=== PATIENT | female | born 1980 | race Caucasian/White ===

== ENCOUNTER 2022-11-03 11:27 | Outpatient (CLI) | payer BC, SELFPAY ==
[2022-11-03 22:46] LABS: C Reactive Protein* < 0.5 mg/dL (0.5-1.0)
[2022-11-03 22:53] LABS: Vitamin D 25 Hydroxy* 48 ng/mL (30-80)
[2022-11-06 02:17] LABS: Rheumatoid Factor <10 IU/mL (0-14)
[2022-11-06 07:55] LABS: Anti-Nuclear Ab(ANA)IgG ELISA None Detected (None Detected)
== END 2022-11-03 11:28 | disposition home or self-care (01) ==
PROVIDERS: PCP Physician Assistant Medical; Visit Provider Physician Assistant Medical
DX: M25.50 Pain in unspecified joint (principal)
CPT/HCPCS: 82306; 83516; 84443; 86039; 86140; 86431

== ENCOUNTER 2022-12-29 12:04 | Outpatient (CLI) | payer BC, SELFPAY ==
--- NOTE | 2022-12-29 12:15 | CRLHL7_ITS ---
For Patients: As a result of the Century Cures Act, medical imaging exams and procedure reports are released immediately into your electronic medical record. You may view this report before your referring provider. If you have questions, please contact your health care provider. CLINICAL HISTORY: Follow up MRI TECHNIQUE: 2D mitchell scale and color Doppler images were acquired of the pelvis using a transvaginal approach. Comparison Pelvic ultrasound 02/24/2022 FINDINGS: On transvaginal imaging, the myometrium has a heterogeneous echotexture. The uterus measures 12.4 x 5.7 x 7.5 cm. There is a intramural leiomyoma within the right lower uterine segment measuring 2.9 x 2.6 x 2.9 cm, previously measuring 2.1 x 1.9 x 2.0 cm. The endometrial lining appears normal and measures 5 mm in thickness. Cervical nabothian cyst noted. The left ovary measures 3.2 x 1.0 x 1.1 cm in size and the right ovary measures 4.0 x 2.7 x 2.3 cm. The ovaries demonstrate normal arterial and venous blood flow on color Doppler analysis. A heterogeneously hypoechoic right ovarian cyst is now present measuring 2.1 x 1.7 x 2.0 cm. There is a mild amount of pelvic free fluid. IMPRESSION: Complex right ovarian cyst measuring 2.1 cm, likely representing a hemorrhagic cyst. Follow-up in 8-12 weeks suggested. Increased size of intramural right-sided lower uterine segment fibroid measuring 2.9 cm, previously measuring 2.1 cm. 2.2 cm cervical nabothian cyst. Dictated by Jacoby Mar MD @ 12/30/2022 6:36:25 AM (Electronically Signed)
== END 2022-12-29 12:05 | disposition home or self-care (01) ==
LOC: US 12:04
PROVIDERS: PCP Physician Assistant Medical; Visit Provider Physician Assistant
DX: R10.2 Pelvic and perineal pain (principal); N83.201 Unspecified ovarian cyst, right side; D25.1 Intramural leiomyoma of uterus; N88.8 Other specified noninflammatory disorders of cervix uteri
CPT/HCPCS: 76830; 76856

== ENCOUNTER 2023-02-25 10:30 | Outpatient (RCR) | payer BC, SELFPAY ==
--- NOTE | 2022-11-26 12:49 | PT.OPE ---
PT [facility] Outpatient Eval PT [facility] Outpatient Eval Start: 11/26/22 09:54 Freq: Status: Active Protocol: Document 11/26/22 09:54 LSL (Rec: 11/26/22 10:33 LSL [id number]) E-signed By Tori Sanchez PT Physical Therapy Outpatient Evaluation Insurance Information Recert Due Date 02/20/23 Insurance Name Medicaid,Blue Cross/Blue Shield Medical Diagnosis pain in multiple joints Treating Diagnosis pain, impaired ROM Referring MD Mcgovern Subjective Subjective Pt. reports she was on a horse in April and her horse jerked her forward and to the left and she had pain in her L LB and hip. She had to drive 7 hours the next day. Goes to chiropractor intermittently. She is talking about ordering an MRI. Pain is constant ache in her R lateral hip and trunk and becomes intermittently sharp. I very rarely sit. 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 IBANEZ test was negative, I have always had a raspy voice, but worse with COVID last February. Has been unable to find anything that makes her hip feel better. Theragun just makes me want to cry. Going to a safety trainer last fall and made things hurt a lot. Chiropractic provides some temporary relief.My goal is to try and find some exercises and stretches that actually can help manage or eliminate my pain. Additionally have pain deep in the hip with intercourse. 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 Precautions Weight Bearing Status Full Weight Bearing Therapy Limitations/Systems Review Not Limited Objective Range of Motion AROM - lumbar flexion 80%, LLF 75% with pain, RLF WNL, extension WNL, Hip - WNL Strength Trunk - extension 5/5, TA 2/5 LE - 5/5 with pain on moving hip forward and backward to achieve hip and test but without pain or weakness on test, adductors 4/5 with pain Swelling anterior hip Palpation tender R hip flexors and RF, TFL, R diaphragm tender Balance & Gait B good SL balance E/O firm surface with ankle instability R, loss of balance on L with E/C within a couple seconds, not assessed E/C on R due to ankle instability Assessment Assessment/Impression Pt. is a 42 y/o female who presents with chronic R hip and lateral trunk pain after a horse riding incident in which her R lateral trunk and hip were required to eccentrically control her movement unexpectedly. She has visible and palpable swelling in the anterior R hip and is overall strong with some weakness in her R hip adductors. She will benefit from treatment to decrease pain and tension in this area and improve her endurance. PT will consist of pt. education, therex, manual therapy, NM re -ed and modalities for pain relief. Further evaluation of her hip joint will be necessary as pain allows. Primary Functional Limitations walking, sitting, standing, Plan of Care Rehabilitation Potential Good Physical Therapy Goals SHORT TERM GOALS: (3 weeks) 1. Pt. to have decreased swelling in R anterior hip. 2. Pt. compliant with hip stretches daily. 3. Pt. able to carry laundry basket at end of work day with pain less than 4/10. 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 Pt. able to work for 4 hours with pain less than 4/10 . 2. Pt. able to transition positions involving rotation with pain less than 2/10. 3. Pt. able to walk for an hour with pain less than 2/10. Coordination/Communication With Referral Source Treatment Plan/Direct Interventions Joint Mobilization,Manual Therapy,Neuromuscular Re-ed, Self-Care/Home Management, Therapeutic Exercises Frequency/Duration 1-2x/week 6 weeks Patient Will Be Discharged From Therapy Completion of LTG(s),Skills Plateau,Independent w/HEP, Independently Progressing Evaluation Billing Untimed Code Treatment Minutes 45 Complexity High Certification Information Initial Certification Date 11/26/22 Ending Certification Date 02/20/23 Provider Signature Shows Agreement With POC & Medical Necessity Physician Signature & Date Requested Please Sign/Date Here Physician Comment/Change : Physician NPI Number #
--- NOTE | 2022-11-27 16:40 | PT.OPE ---
PT [facility] Outpatient Eval PT [facility] Outpatient Eval Start: 11/26/22 09:54 Freq: Status: Active Protocol: Document 11/26/22 09:54 LSL (Rec: 11/26/22 10:33 LSL [id number]) E-signed By Tori Sanchez PT Physical Therapy Outpatient Evaluation Insurance Information Recert Due Date 02/20/23 Insurance Name Medicaid,Blue Cross/Blue Shield Medical Diagnosis pain in multiple joints Treating Diagnosis pain, impaired ROM Referring MD Mcgovern Subjective Subjective Pt. reports she was on a horse in April and her horse jerked her forward and to the left and she had pain in her L LB and hip. She had to drive 7 hours the next day. Goes to chiropractor intermittently. She is talking about ordering an MRI. Pain is constant ache in her R lateral hip and trunk and becomes intermittently sharp. I very rarely sit. 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 IBANEZ test was negative, I have always had a raspy voice, but worse with COVID last February. Has been unable to find anything that makes her hip feel better. Theragun just makes me want to cry. Going to a development trainer last fall and made things hurt a lot. Chiropractic provides some temporary relief.My goal is to try and find some exercises and stretches that actually can help manage or eliminate my pain. Additionally have pain deep in the hip with intercourse. 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 Precautions Weight Bearing Status Full Weight Bearing Therapy Limitations/Systems Review Not Limited Objective Range of Motion AROM - lumbar flexion 80%, LLF 75% with pain, RLF WNL, extension WNL, Hip - WNL Strength Trunk - extension 5/5, TA 2/5 LE - 5/5 with pain on moving hip forward and backward to achieve hip and test but without pain or weakness on test, adductors 4/5 with pain Swelling anterior hip Palpation tender R hip flexors and RF, TFL, R diaphragm tender Balance & Gait B good SL balance E/O firm surface with ankle instability R, loss of balance on L with E/C within a couple seconds, not assessed E/C on R due to ankle instability Assessment Assessment/Impression Pt. is a 42 y/o female who presents with chronic R hip and lateral trunk pain after a horse riding incident in which her R lateral trunk and hip were required to eccentrically control her movement unexpectedly. She has visible and palpable swelling in the anterior R hip and is overall strong with some weakness in her R hip adductors. She will benefit from treatment to decrease pain and tension in this area and improve her endurance. PT will consist of pt. education, therex, manual therapy, NM re -ed and modalities for pain relief. Further evaluation of her hip joint will be necessary as pain allows. Primary Functional Limitations walking, sitting, standing, Plan of Care Rehabilitation Potential Good Physical Therapy Goals SHORT TERM GOALS: (3 weeks) 1. Pt. to have decreased swelling in R anterior hip. 2. Pt. compliant with hip stretches daily. 3. Pt. able to carry laundry basket at end of work day with pain less than 4/10. 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 Pt. able to work for 4 hours with pain less than 4/10 . 2. Pt. able to transition positions involving rotation with pain less than 2/10. 3. Pt. able to walk for an hour with pain less than 2/10. Coordination/Communication With Referral Source Treatment Plan/Direct Interventions Joint Mobilization,Manual Therapy,Neuromuscular Re-ed, Self-Care/Home Management, Therapeutic Exercises Frequency/Duration 1-2x/week 6 weeks Patient Will Be Discharged From Therapy Completion of LTG(s),Skills Plateau,Independent w/HEP, Independently Progressing Evaluation Billing Untimed Code Treatment Minutes 45 Complexity High Certification Information Initial Certification Date 11/26/22 Ending Certification Date 02/20/23 Provider Signature Shows Agreement With POC & Medical Necessity Physician Signature & Date Requested Please Sign/Date Here Physician Comment/Change : Physician NPI Number #
== END 2023-06-25 23:59 | disposition home or self-care (01) ==
PROVIDERS: PCP Physician Assistant Medical; Visit Provider Physician Assistant Medical
DX: M25.50 Pain in unspecified joint (principal); Z51.89 Encounter for other specified aftercare
CPT/HCPCS: 97032; 97110; 97140; 97163

== ENCOUNTER 2023-04-20 15:51 | Outpatient (CLI) | payer BC, SELFPAY ==
--- NOTE | 2023-04-20 16:00 | CRLHL7_ITS ---
For Patients: As a result of the Century Cures Act, medical imaging exams and procedure reports are released immediately into your electronic medical record. You may view this report before your referring provider. If you have questions, please contact your health care provider. CLINICAL HISTORY: f/u right ovarian complex cyst Comparison 12/29/2022 TECHNIQUE: 2D mitchell scale and color Doppler images were acquired of the pelvis using a transvaginal approach. FINDINGS: Right-sided uterine fibroid is similar measuring 3.9 x 2.5 x 2.9 cm. The endometrial lining appears normal and measures 6 mm in thickness. The left ovary measures 3.5 x 1.7 x 2.0 cm in size and the right ovary measures 3.1 x 2.1 x 2.7 cm. The ovaries demonstrate normal arterial and venous blood flow on color Doppler analysis. Moderate pelvic free fluid. Near complete resolution of previously noted right ovarian hemorrhagic cyst. IMPRESSION: Interval near complete resolution of the right ovarian hemorrhagic cyst. Moderate pelvic free fluid is present with a volume of 15.1 cc. Stable right-sided uterine fibroid measuring 3.9 cm. Dictated by Jacoby Mar MD @ 04/21/2023 4:48:23 PM (Electronically Signed)
== END 2023-04-20 15:52 | disposition home or self-care (01) ==
LOC: US 15:52
PROVIDERS: PCP Physician Assistant Medical; Visit Provider Physician Assistant
DX: N83.201 Unspecified ovarian cyst, right side (principal); D25.9 Leiomyoma of uterus, unspecified
CPT/HCPCS: 76830

== ENCOUNTER 2023-11-25 08:23 | Outpatient (CLI) | payer BC, SELFPAY | END 2023-11-25 08:24 | disposition home or self-care (01) | PROVIDERS: PCP Physician Assistant Medical; Visit Provider Emergency Medicine | DX: M79.10 Myalgia, unspecified site (principal) | CPT/HCPCS: 82550; 86140 ==

== ENCOUNTER 2023-12-07 09:37 | Outpatient (CLI) | payer BC, SELFPAY ==
--- NOTE | 2023-12-07 11:09 | W.ANESCHARGE ---
Anesthesia Charges Start Date/Time Anesthesia Start Date: 12/07/23 Anesthesia Start Time: 10:44 Stop Date/Time Anesthesia Stop Date: 12/07/23 Anesthesia Stop Time: 11:00
--- NOTE | 2023-12-07 11:30 | W.ANESCHARGE ---
Anesthesia Charges Start Date/Time Anesthesia Start Date: 12/07/23 Anesthesia Start Time: 10:44 Stop Date/Time Anesthesia Stop Date: 12/07/23 Anesthesia Stop Time: 11:00
== END 2023-12-07 09:38 | disposition home or self-care (01) ==
LOC: OP CLINIC 09:38
PROVIDERS: PCP Physician Assistant Medical; Visit Provider Internal Medicine
DX: R10.84 Generalized abdominal pain (principal)
CPT/HCPCS: 00812; 45378; J2704

== ENCOUNTER 2025-01-26 08:34 | Outpatient (CLI) | payer OTHER, SELFPAY ==
[2025-01-26 15:19] LABS: Chlamydia DNA Amplified* NOT DETECTED (No Detected); GC DNA Amplified* NOT DETECTED (No Detected)
[2025-01-28 00:51] LABS: HPV Source Cervix; HPV, High Risk by TMA Not Detected
== END 2025-01-26 08:35 | disposition home or self-care (01) ==
PROVIDERS: PCP Physician Assistant Medical; Visit Provider Physician Assistant Medical
DX: Z13.228 Encounter for screening for other metabolic disorders (principal); Z13.6 Encounter for screening for cardiovascular disorders; Z13.29 Encounter for screening for other suspected endocrine disorder; Z11.4 Encounter for screening for human immunodeficiency virus [HIV]; Z11.59 Encounter for screening for other viral diseases; Z11.3 Encounter for screening for infections with a predominantly sexual mode of transmission; Z11.51 Encounter for screening for human papillomavirus (HPV); Z12.4 Encounter for screening for malignant neoplasm of cervix
CPT/HCPCS: 80048; 80061; 84443; 86703; 86803; 87491; 87591; 87624; 87625; 88141; 88142

== ENCOUNTER 2025-02-09 10:42 | Outpatient (CLI) | payer OTHER, BC, SELFPAY ==
--- NOTE | 2025-02-09 10:45 | CRLHL7_ITS ---
For Patients: As a result of the Century Cures Act, medical imaging exams and procedure reports are released immediately into your electronic medical record. You may view this report before your referring provider. If you have questions, please contact your health care provider. BILATERAL DIGITAL SCREENING MAMMOGRAM WITH COMPUTER-AIDED DETECTION AND TOMOSYNTHESIS CLINICAL HISTORY: : Routine screening exam. COMPARISON: 04/26/18 TECHNIQUE: Digital mammogram in CC and MLO projections including computer-aided detection (CAD). Tomosynthesis was used in this interpretation. BREAST COMPOSITION: The breasts are heterogeneously dense, which may obscure small masses. FINDINGS: RIGHT Breast: No suspicious findings. LEFT Breast: Microcalcifications are present within the lower outer quadrant 8 cm from the nipple. IMPRESSION: LEFT breast calcifications. RECOMMENDATIONS: Spot compression magnification views of the calcifications in the LEFT breast in CC and ML projections. [facility] will contact the patient. A lay language report of this examination will be provided to the patient. BI-RADS Category 0: Incomplete: Need Additional Imaging Evaluation Dictated by Jacoby Mar MD @ 02/20/2025 12:26:37 PM Dictated by: Jacoby Mar MD @ 02/20/2025 12:26:43 (Electronically Signed)
--- NOTE | 2025-02-09 11:15 | CRLHL7_ITS ---
For Patients: As a result of the Century Cures Act, medical imaging exams and procedure reports are released immediately into your electronic medical record. You may view this report before your referring provider. If you have questions, please contact your health care provider. INDICATION: Right leg pain COMPARISON: None. TECHNIQUE: A compression venous ultrasound exam was performed of the right lower extremity using mitchell-scale imaging, color Doppler and spectral Doppler analysis. FINDINGS: Sonographic imaging of the right lower extremity demonstrates normal compressibility and color Doppler venous blood flow within the common femoral vein, deep femoral vein, and the proximal greater saphenous vein. Within the thigh, the femoral vein is patent and compressible. At a lower level, the popliteal and posterior tibial veins also show normal compressibility and color Doppler venous blood flow. Limited imaging of the contralateral groin demonstrates a normal spectral waveform and color Doppler venous blood flow within the left common femoral vein. IMPRESSION: Normal venous ultrasound exam. No evidence of deep vein thrombosis within the right lower extremity. Dictated by Jacoby Mar MD @ 02/09/2025 4:59:21 PM (Electronically Signed)
== END 2025-02-09 10:43 | disposition home or self-care (01) ==
LOC: MAMMO 10:43
PROVIDERS: PCP Physician Assistant Medical; Visit Provider Physician Assistant Medical
DX: Z12.31 Encounter for screening mammogram for malignant neoplasm of breast (principal); R92.333 Mammographic heterogeneous density, bilateral breasts; R92.1 Mammographic calcification found on diagnostic imaging of breast; I83.93 Asymptomatic varicose veins of bilateral lower extremities
CPT/HCPCS: 77063; 77067; 93971

== ENCOUNTER 2025-03-08 07:35 | Outpatient (CLI) | payer BC, SELFPAY ==
--- NOTE | 2025-03-08 07:45 | CRLHL7_ITS ---
For Patients: As a result of the Cures Act, medical imaging exams and procedure reports are released immediately into your electronic medical record. You may view this report before your referring provider. If you have questions, please contact your health care provider. CLINICAL HISTORY: : LEFT breast calcifications. COMPARISON: 02/09/2025 TECHNIQUE: Digital LEFT mammogram in 3 projections. BREAST COMPOSITION: The breasts are heterogeneously dense, which may obscure small masses. FINDINGS: Additional views left breast submitted. Small grouping of punctate calcifications noted within the lower outer quadrant 8 cm from the nipple. No pleomorphism. IMPRESSION: Benign calcifications lower outer quadrant left breast. No suspicious findings. RECOMMENDATIONS: Routine screening mammography. A lay language report of this examination will be provided to the patient. BI-RADS Category 2. Benign. Dictated by Jacoby Mar MD @ 03/08/2025 9:17:38 AM Dictated by: Jacoby Mar MD @ 03/08/2025 09:18:01 (Electronically Signed)
== END 2025-03-08 07:36 | disposition home or self-care (01) ==
LOC: MAMMO 07:37
PROVIDERS: PCP Physician Assistant Medical; Visit Provider Physician Assistant Medical
DX: R92.8 Other abnormal and inconclusive findings on diagnostic imaging of breast (principal)
CPT/HCPCS: 77065; G0279

== ENCOUNTER 2025-06-16 12:54 | Outpatient (CLI) | payer BC, SELFPAY ==
--- NOTE | 2025-06-16 13:00 | CRLHL7_ITS ---
For Patients: As a result of the Century Cures Act, medical imaging exams and procedure reports are released immediately into your electronic medical record. You may view this report before your referring provider. If you have questions, please contact your health care provider. INDICATION: Irregular and frequent menses COMPARISON: 04/20/2023 TECHNIQUE: 2D mitchell-scale and color Doppler images were acquired of the pelvis using a transabdominal and transvaginal approach. Transvaginal imaging performed to better visualize the endometrial stripe and ovaries. FINDINGS: Nabothian cysts are present. The largest measures 2.5 x 1.6 x 1.9 cm. Right uterine fibroid measures 3.9 x 4.0 x 3.8 cm. Uterus measures 11.5 cm in length by 5.8 cm in AP diameter by 9.2 cm in transverse dimension. The endometrial lining appears measures 14.4 mm in composite thickness. The right ovary measures 4.0 x 1.9 x 2.5 cm in size and the left ovary measures 5.4 x 4.0 x 4.6 cm. The ovaries demonstrate normal arterial and venous blood flow on color Doppler analysis. There are no suspicious fluid collections within the cul-de-sac. Left ovarian cyst is present which measures 4.5 x 3.9 x 3.5 cm. An associated 2.5 cm daughter cyst is present. There is also a simple left paraovarian cyst which measures 2.1 x 1.5 x 2.0 cm. Hyperechoic structure within the right ovary measures 6 x 6 x 7 millimeters. An adjacent right ovarian simple cyst is noted which measures 2.1 cm. IMPRESSION: Endometrial thickness 14.4 millimeters. Bilateral simple ovarian cysts and incidental 7 millimeter right ovarian dermoid. Right mid uterine fibroid measures 4 cm. Dictated by Jacoby Mar MD @ 06/16/2025 3:56:41 PM (Electronically Signed)
== END 2025-06-16 12:55 | disposition home or self-care (01) ==
LOC: US 12:55
PROVIDERS: PCP Physician Assistant Medical; Visit Provider Obstetrics & Gynecology
DX: N92.6 Irregular menstruation, unspecified (principal); R93.89 Abnormal findings on diagnostic imaging of other specified body structures; N83.292 Other ovarian cyst, left side; N83.291 Other ovarian cyst, right side; D25.9 Leiomyoma of uterus, unspecified
CPT/HCPCS: 76830; 76856

== ENCOUNTER 2025-08-02 09:14 | Outpatient (CLI) | payer BC, SELFPAY ==
--- NOTE | 2025-08-02 09:15 | CRLHL7_ITS ---
For Patients: As a result of the Century Cures Act, medical imaging exams and procedure reports are released immediately into your electronic medical record. You may view this report before your referring provider. If you have questions, please contact your health care provider. CLINICAL HISTORY: Unspecified ovarian cyst COMPARISON: 06/16/2025 TECHNIQUE: 2D mitchell-scale and color Doppler images were acquired of the pelvis using a transvaginal approach. FINDINGS: Cervical nabothian cysts are present which measure up to 2.1 cm. Uterus measures 13.1 x 6.3 x 9.8 cm. Endometrium measures 11 millimeters. No endometrial fluid. Right-sided fibroid measures 5.0 x 4.1 x 4.4 cm. The left ovary measures 4.8 x 2.4 x 2.7 cm in size and the right ovary measures 5.1 x 3.1 x 2.8 cm. The ovaries demonstrate normal arterial and venous blood flow on color Doppler analysis. Incidental echogenic focus within the right ovary measures 7 x 6 x 7 millimeters, unchanged. Simple left adnexal cyst measures 1.8 x 1.8 x 1.9 cm. Moderate pelvic free fluid noted. IMPRESSION: Simple left adnexal cyst measures 1.9 cm. No left ovarian cyst. Moderate pelvic free fluid. No suspicious findings. Dictated by Jacoby Mar MD @ 08/02/2025 12:03:32 PM (Electronically Signed)
== END 2025-08-02 09:15 | disposition home or self-care (01) ==
LOC: US 09:14
PROVIDERS: PCP Physician Assistant Medical; Visit Provider Obstetrics & Gynecology
DX: N83.209 Unspecified ovarian cyst, unspecified side (principal); N83.292 Other ovarian cyst, left side
CPT/HCPCS: 76830